=== PATIENT | male | born 1960 | race Caucasian/White ===

== ENCOUNTER 2016-08-05 13:26 | Day surgery (SDC) | payer BC ==
[2016-08-04 14:06] VITALS: BMI 35.2
[2016-08-05] MEDS ORDERED: TETRACAINE/BENZOCAINE/BUTAMBEN 20 GM SPR TP ONE (14:30)
[2016-08-05] MEDS ORDERED: PROPOFOL 20 ML ONE ×2 (14:35)
[2016-08-05 15:31] VITALS: TEMP 97.8
[2016-08-05 16:18] VITALS: BP 123/79; PULSE 72
--- NOTE | 2016-08-09 11:42 | PATH ---
Surgical Pathology Report Patient Name: FREDIS SORTO [facility]. Rec. #: [id number] /Age/Gender: 1960 (Age: 56) / M Account: [id number] Location: [facility] Taken: 08/05/2016 Received: 08/08/2016 Reported: 08/09/2016 Physicians: Nitesh Orta M.D. Specimen(s) Received BX STOMACH Clinical History GERD, history of colon polyp, family history of colon cancer Gastritis, chronic constipation, redundant colon, grade 2 hemorrhoids Final Diagnosis STOMACH, BIOPSY: GASTRIC FUNDIC MUCOSA WITH NO PATHOLOGIC CHANGES. IMMUNOSTAIN FOR H. PYLORI IS NEGATIVE. Electronically Signed Clint Vicente M.D. Gross Description Received in formalin, labeled "biopsy stomach" is a newberry, irregular portion of soft tissue measuring 0.3 cm. in greatest dimension. The specimen is submitted in toto in one cassette. 08/08/201608/08/2016
== END 2016-08-05 16:20 | disposition home or self-care (01) ==
LOC: JASU-ENDO 13:26 → JOR 13:26 → JASU-ENDO 16:20
PROVIDERS: ATTEND Internal Medicine Gastroenterology
PROC: 0DB68ZX Excision of Stomach, Via Natural or Artificial Opening Endoscopic, Diagnostic (ICD-10-PCS; 2016-08-05)
PROC: 0DJD8ZZ Inspection of Lower Intestinal Tract, Via Natural or Artificial Opening Endoscopic (ICD-10-PCS; principal; 2016-08-05 14:30)
DX: Z12.11 Encounter for screening for malignant neoplasm of colon (principal); Z86.010 Personal history of colon polyps; Z80.0 Family history of malignant neoplasm of digestive organs; K63.89 Other specified diseases of intestine; K64.8 Other hemorrhoids; R12 Heartburn; K29.70 Gastritis, unspecified, without bleeding
CPT/HCPCS: 43239; G0105; 88305-TC; 88342-TC

== ENCOUNTER 2018-12-06 15:10 | Observation (INO) | payer OTHER ==
[2018-12-06 15:15] VITALS: BMI 35.9
--- NOTE | 2018-12-06 15:16 | PDOC ---
History of Present Illness - General Chief Complaint: Chest Pain Stated Complaint: CHEST PAIN Time Seen by Provider: 12/06/18 15:12 History Source: Patient Exam Limitations: No Limitations - History of Present Illness Initial Comments: 12/06/18 15:38 58 y/o male with chest pain and left arm tingling today while gardening. No w resolved. Has been have mid sternal chest pain on/off for 1 week. Normal stress test in past. No fever or chills. Mild back pain. Denies SOB. No fall or trauma. No sweating. No traveling. Carpal tunnel surgery in October. Presenting Symptoms: Chest Pain Past History - Past Medical History Allergies/Adverse Reactions: Allergies Allergy/AdvReac Type Severity Reaction Status Date / Time clindamycin phosphate Allergy Intermediate Nausea Verified 12/06/18 15:11 [From Cleocin] Home Medications: Ambulatory Orders Amlodipine Besylate 10 mg PO DAILY 09/07/15 Escitalopram Oxalate [Lexapro -] 20 mg PO DAILY 12/06/18 Omeprazole 40 mg PO DAILY 12/06/18 Telmisartan/Hydrochlorothiazid [Telmisartan-Hctz 80-12.5 mg Tb] 1 each PO DAILY 12/06/18 Cardiac Disorders: Yes (MVP) Disorders: Yes (GERD) HTN: Yes Hypercholesterolemia: Yes (HYPERLIPIDEMIA;DISLIPIDEMIA) Psychiatric Problems: Yes (DEPRESSION) - Surgical History Orthopedic Surgery: Yes (RIGHT KNEE ARTHROSCOPY) - Suicide/Smoking/Psychosocial Hx Smoking Status: No Smoking History: Never smoked Number of Cigarettes Smoked Daily: 0 Hx Alcohol Use: Yes Drug/Substance Use Hx: Yes Substance Use Type: Alcohol Hx Substance Use Treatment: No Review of Systems - Review of Systems Able to Perform ROS?: Yes Is the patient limited Wolof proficient: No Constitutional: No: Chills, Fever Respiratory: No: Cough, Shortness of Breath Cardiac (ROS): Yes: Chest Pain ABD/GI: No: Diarrhea, Nausea, Vomiting Musculoskeletal: Yes: Back Pain Integumentary: No: Bruising Neurological: No: Headache Psychiatric: No: Anxiety All Other Systems: Reviewed and Negative *Physical Exam - Vital Signs Last Vital Signs Temp Pulse Resp BP Pulse Ox 98.5 F 71 16 127/83 97 12/06/18 15:10 12/06/18 18:00 12/06/18 18:00 12/06/18 18:00 12/06/18 18:00 - Physical Exam General Appearance: Yes: Nourished, Appropriately Dressed. No: Apparent Distress HEENT: positive: MAICOL, Normal ENT Inspection, Normal Voice, Symmetrical, Pharynx Normal Neck: positive: Trachea midline, Normal Thyroid, Supple. negative: Tender, Rigid, Carotid bruit Respiratory/Chest: positive: Lungs Clear, Normal Breath Sounds. negative: Chest Tender, Respiratory Distress Cardiovascular: positive: Regular Rhythm, Regular Rate, S1, S2. negative: Edema , JVD, Murmur Vascular Pulses: Femoral (R): 4+, Femoral (L): 4+, Carotid (R): 4+, Carotid (L) : 4+, Dorsalis-Pedis (R): 4+, Doralis-Pedis (L): 4+ Gastrointestinal/Abdominal: positive: Normal Bowel Sounds, Flat, Soft. negative : Tender, Organomegaly, Pulsatile Mass Lymphatic: negative: Adenopathy, Tenderness, Other Musculoskeletal: positive: Normal Inspection. negative: CVA Tenderness Extremity: positive: Normal Capillary Refill, Normal Inspection, Normal Range of Motion, Tender, Pelvis Stable. negative: Calf Tenderness Integumentary: positive: Normal Color, Dry, Warm Neurologic: positive: collection team lead II-XII NML intact, Fully Oriented, Alert, Normal Mood/ Affect, Normal Response, Motor Strength 5/5 Heart Score/ECG Review - History History: Moderately suspicious - Electrocardiogram EKG: Normal - Age Age: 45-65 - Risk Factors Risk Factors Heart Score: Yes Hx Hypertension, Yes Positive family hx of cardiac disease, Yes Hx Obesity Based on the list above the patient has:: >/=3 risk factors or Hx atherosclerotic disease - Troponin Troponin: </= normal limit - Score Heart Score - Total: 4 - ECG Intrepretation Rhythm: Regular Rhythm Comment:: 12/06/18 15:15 @1514 HR 91 NSR non specific T wave abnormalities 12/06/18 15:26 No change from 12/23/2008 ED Treatment Course - LABORATORY CBC & Chemistry Diagram: 12/06/18 15:20 12/06/18 15:20 - ADDITIONAL ORDERS Additional order review: Laboratory Results 12/06/18 12/06/18 15:20 15:20 Sodium 139 Potassium 4.3 Chloride 103 Carbon Dioxide 31 Anion Gap 5 L BUN 18.0 Creatinine 1.0 Est GFR (CKD-EPI)AfAm 96.40 Est GFR (CKD-EPI)NonAf 83.18 Random Glucose 96 Calcium 9.3 Total Bilirubin 0.9 AST 22 ALT 26 Alkaline Phosphatase 47 Troponin I < 0.03 Total Protein 7.3 Albumin 4.3 12/06/18 15:20 RBC 4.88 MCV 90.6 MCHC 33.4 RDW 12.7 D MPV 7.8 Neutrophils % 50.9 Lymphocytes % 35.1 Monocytes % 10.2 Eosinophils % 3.0 Basophils % 0.8 Pt with chest pain, EKG unchanged from prior, will obtain cardiac work up and call [employer]. 12/06/18 18:[address] Tejeda, will admit at [facility] and do stress test tomorrow. Pt in agreement with plan 12/06/18 18:03 CXR NAD 12/06/18 18:38 Spoke with Hospitalist will admit to observation at [facility], Abby admit ti [facility]. - RADIOLOGY Radiology Studies Ordered: Category Date Time Status CHEST X-RAY PORTABLE* [RAD] Stat Radiology 12/06/18 15:13 Taken - Medications Given in the ED: ED Medications Discontinued Medications Generic Name Dose Route Start Last Admin Trade Name Freq PRN Reason Stop Dose Admin Aspirin 324 mg 12/06/18 15:56 12/06/18 15:59 Asa - PO 12/06/18 15:57 324 mg ONCE ONE Administration *DC/Admit/Observation/Transfer Diagnosis at time of Disposition: Chest pain Qualifiers: Chest pain type: unspecified Qualified Code(s): R07.9 - Chest pain, unspecified - Discharge Dispostion Condition at time of disposition: Stable Decision to Admit order: Yes - Referrals Referrals: Brodie Cintron MD [Primary Care Provider] - - Patient Instructions - Post Discharge Activity
[2018-12-06 15:41] LABS: BASO % 0.8 % (0-2.0); HEMATOCRIT 44.2 % (35.4-49); HEMOGLOBIN 14.8 GM/dl (11.7-16.9); LYMPH % 35.1 % (8-40); MCH 30.3 pg (25.7-33.7); MCHC 33.4 g/dl (32.0-35.9); MEAN CELL VOLUME 90.6 fl (80-96); MEAN PLT VOLUME 7.8 fl (7.5-11.1); MONO % 10.2 % (3.8-10.2); NEUT % 50.9 % (42.8-82.8); PLATELET COUNT 253 K/MM3 (134-434); RBC 4.88 M/mm3 (4.00-5.60); RDW 12.7 % (11.9-15.9); WHITE BLOOD COUNT 4.9 K/mm3 (4.0-10.8)
[2018-12-06] MEDS ORDERED: ASPIRIN 81 MG CHEWABLE TABLETS PO ONE (15:56)
[2018-12-06 15:57] LABS: ALBUMIN 4.3 g/dl (3.4-5.0); BILIRUBIN,TOTAL 0.9 mg/dl (0.2-1); CALCIUM 9.3 mg/dl (8.5-10); POTASSIUM 4.3 mmol/L (3.5-5.1); TOT PROT 7.3 g/dl (6.4-8.2)
[2018-12-06] MEDS ORDERED: ASPIRIN 81 MG CHEWABLE TABLETS ONE (15:57)
--- NOTE | 2018-12-06 22:00 | HP ---
CHIEF COMPLAINT: intermittent chest pain with tingling to left side of neck and left arm PCP:Dr. Cintron Person Investigator: Dr. Walker HISTORY OF PRESENT ILLNESS: 58 year old obese male with past medical history of hypertension, dermatitis and spinal stenosis who initially presented to [facility] and reported he has been having exertional chest discomfort for the past week which was reported as intermittent episodes while he was doing gardening work. He reports today he felt a rapid heart beat and tingling in his neck and left arm that lasted about 1/2 hour. Upon evaluation in the ER he was found to have a normal troponin. EKG revealed a normal sinus rhythm, no signs of acute ischemia and nonspecific T wave changes. Cardiology was consulted and he was transferred to [facility] for further cardiac workup with nuclear stress test and echocardiogram as planned for tomorrow.He reported he had a normal stress test last year. He is currently asymptomatic of chest pain. Recent Travel:denies PAST MEDICAL HISTORY: hypertension spinal stenosis dermatitis PAST SURGICAL HISTORY: carpal tunnel surgery October 2018 Social History: Smoking:denies Alcohol:drinks 1-2 drinks/week Drugs: denies Family History: grandfather had heart issues Allergies clindamycin phosphate [From Cleocin] Allergy (Intermediate, Verified 12/06/18 15 :11) Nausea HOME MEDICATIONS: Home Medications Medication Instructions Recorded Amlodipine Besylate 10 mg PO DAILY 09/07/15 Escitalopram Oxalate [Lexapro -] 20 mg PO DAILY 12/06/18 Omeprazole 40 mg PO DAILY 12/06/18 Telmisartan/Hydrochlorothiazid 1 each PO DAILY 12/06/18 [Telmisartan-Hctz 80-12.5 mg Tb] REVIEW OF SYSTEMS CONSTITUTIONAL: Absent: fever, chills, diaphoresis, generalized weakness, malaise, loss of appetite, weight change HEENT: Absent: rhinorrhea, nasal congestion, throat pain, throat swelling, difficulty swallowing, mouth swelling, ear pain, eye pain, visual changes CARDIOVASCULAR: Absent: chest pain with radiation to neck and left arm ,syncope, palpitations, irregular heart rate, lightheadedness, peripheral edema RESPIRATORY: Absent: cough, shortness of breath, dyspnea with exertion, orthopnea, wheezing, stridor, hemoptysis GASTROINTESTINAL: Absent: abdominal pain, abdominal distension, nausea, vomiting, diarrhea, constipation, melena, hematochezia GENITOURINARY: Absent: dysuria, frequency, urgency, hesitancy, hematuria, flank pain, genital pain MUSCULOSKELETAL: Absent: myalgia, arthralgia, joint swelling, back pain, neck pain SKIN: Absent: rash, itching, pallor, facial rash HEMATOLOGIC/IMMUNOLOGIC: Absent: easy bleeding, easy bruising, lymphadenopathy, frequent infections ENDOCRINE: Absent: unexplained weight gain, unexplained weight loss, heat intolerance, cold intolerance NEUROLOGIC: Absent: headache, focal weakness or paresthesias, dizziness, unsteady gait, seizure, mental status changes, bladder or bowel incontinence PSYCHIATRIC: Absent: anxiety, depression, suicidal or homicidal ideation, hallucinations. PHYSICAL EXAMINATION Vital Signs - 24 hr 12/06/18 12/06/18 12/06/18 15:10 16:00 18:00 Temperature 98.5 F Pulse Rate 98 H Pulse Rate [ 79 71 Left Apical] Respiratory 18 18 16 Rate Blood Pressure 119/95 Blood Pressure 114/84 127/83 [Right Arm] O2 Sat by Pulse 97 99 97 Oximetry (%) 12/06/18 12/06/18 19:30 20:23 Temperature 98.4 F 98.3 F Pulse Rate 82 67 Pulse Rate [ Left Apical] Respiratory 16 20 Rate Blood Pressure 130/75 133/82 Blood Pressure [Right Arm] O2 Sat by Pulse Oximetry (%) GENERAL: awake, alert, and fully oriented no acute distress HEAD: normal EYES: pupils equal round and reactive to light EARS, NOSE, THROAT: ears normal nares patent NECK: supple LUNGS: breath sounds equal clear to auscultation bilaterally no wheezes no crackles no accessory muscle use HEART: regular rate and rhythm, normal S1 and S2 no murmurs ABDOMEN: soft, nontender, not distended, normoactive bowel sounds MUSCULOSKELETAL: normal range of motion at all joints UPPER EXTREMITIES: 2+ pulses no cyanosis LOWER EXTREMITIES: 2+ pulses, warm, well-perfused no pitting edema NEUROLOGICAL: no neuro focal deficits PSYCHIATRIC: cooperative and mood normal SKIN: warm, dry, normal turgor, facial rash-nonerythematous Laboratory Results - last 24 hr 12/06/18 12/06/18 12/06/18 15:20 15:20 15:20 WBC 4.9 RBC 4.88 Hgb 14.8 Hct 44.2 MCV 90.6 MCH 30.3 MCHC 33.4 RDW 12.7 D Plt Count 253 MPV 7.8 Absolute Neuts (auto) 2.6 Neutrophils % 50.9 Lymphocytes % 35.1 Monocytes % 10.2 Eosinophils % 3.0 Basophils % 0.8 Sodium 139 Potassium 4.3 Chloride 103 Carbon Dioxide 31 Anion Gap 5 L BUN 18.0 Creatinine 1.0 Est GFR (CKD-EPI)AfAm 96.40 Est GFR (CKD-EPI)NonAf 83.18 Random Glucose 96 Calcium 9.3 Total Bilirubin 0.9 AST 22 ALT 26 Alkaline Phosphatase 47 Troponin I < 0.03 Total Protein 7.3 Albumin 4.3 ASSESSMENT/PLAN: 58 year old obese male with past medical history of hypertension, dermatitis and spinal stenosis who initially presented to [facility] and reported he has been having exertional chest discomfort for the past week reported as intermittent and with tingling in his neck and left arm that lasted about 1/2 hour today. He is currently asymptomatic #1 Chest Pain Chest pain concerning for angina.Workup shows 2 normal troponin. EKG with no acute ST elevations and nonspecific ST changes. Cardiology was consulted- Dr. Thomas. Plan is for cardiac workup with nuclear stress test and echocardiogrm as planned for tomorrow. Check fasting lipid panel NPO after midnight Baby aspirin was added #2 Hypertension Controlled Continue with amlodipine, HCTZ/telmisartan FEN NPO after midnight DVT TEDS and SCD's Visit type - Emergency Visit Emergency Visit: Yes ED Registration Date: 12/06/18 Care time: The patient presented to the Emergency Department on the above date and was hospitalized for further evaluation of their emergent condition. - New Patient This patient is new to me today: Yes Date on this admission: 12/06/18 - Critical Care Critical Care patient: No
[2018-12-07 06:13] LABS: HEMATOCRIT 41.5 % (35.4-49); HEMOGLOBIN 14.3 GM/dL (11.7-16.9); MCH 30.6 pg (25.7-33.7); MCHC 34.3 g/dl (32.0-35.9); MEAN CELL VOLUME 89.1 fl (80-96); MEAN PLT VOLUME 7.7 fl (7.5-11.1); PLATELET COUNT 208 K/MM3 (134-434); RBC 4.66 M/mm3 (4.00-5.60); RDW 13.4 % (11.9-15.9); WHITE BLOOD COUNT 3.9 K/mm3 (4.0-10.0)
[2018-12-07 06:34] LABS: CALCIUM 7.5 mg/dL (8.5-10.1); MAGNESIUM 2.3 mg/dL (1.8-2.4); POTASSIUM 4.1 mmol/L (3.5-5.1)
--- NOTE | 2018-12-07 08:02 | PN ---
Progress Note, Physician History of Present Illness: 58 year old obese male with past medical history of hypertension, dermatitis and spinal stenosis who initially presented to [facility] and reported he has been having exertional chest discomfort for the past week which was reported as intermittent episodes while he was doing gardening work. He reports today he felt a rapid heart beat and tingling in his neck and left arm that lasted about 1/2 hour. Upon evaluation in the ER he was found to have a normal troponin. EKG revealed a normal sinus rhythm, no signs of acute ischemia and nonspecific T wave changes. Cardiology was consulted and he was transferred to [facility] for further cardiac workup with nuclear stress test and echocardiogram as planned for tomorrow.He reported he had a normal stress test last year. He is currently asymptomatic of chest pain. - Current Medication List Current Medications: Active Medications Amlodipine Besylate (Norvasc -) 10 mg PO DAILY LEONEL Aspirin (Ecotrin -) 81 mg PO DAILY LEONEL Escitalopram Oxalate (Lexapro -) 20 mg PO DAILY LEONEL Hydrochlorothiazide (Hctz -) 12.5 mg PO DAILY LEONEL Pantoprazole Sodium (Protonix -) 40 mg PO DAILY LEONEL Valsartan (Diovan -) 320 mg PO DAILY LEONEL - Objective Vital Signs: Vital Signs Temperature 98.2 F 12/07/18 01:18 Pulse Rate 58 L 12/07/18 05:00 Respiratory Rate 20 12/07/18 05:00 Blood Pressure 127/82 12/07/18 05:00 O2 Sat by Pulse Oximetry (%) 98 12/07/18 03:32 Labs: CBC, BMP 12/07/18 05:24 12/07/18 05:24
--- NOTE | 2018-12-07 08:36 | PN ---
Progress Note, Physician - Current Medication List Current Medications: Active Medications Amlodipine Besylate (Norvasc -) 10 mg PO DAILY LEONEL Aspirin (Ecotrin -) 81 mg PO DAILY LEONEL Escitalopram Oxalate (Lexapro -) 20 mg PO DAILY LEONEL Hydrochlorothiazide (Hctz -) 12.5 mg PO DAILY LEONEL Pantoprazole Sodium (Protonix -) 40 mg PO DAILY LEONEL Valsartan (Diovan -) 320 mg PO DAILY LEONEL - Objective Vital Signs: Vital Signs Temperature 98.2 F 12/07/18 01:18 Pulse Rate 58 L 12/07/18 05:00 Respiratory Rate 20 12/07/18 05:00 Blood Pressure 127/82 12/07/18 05:00 O2 Sat by Pulse Oximetry (%) 98 12/07/18 03:32 Labs: CBC, BMP 12/07/18 05:24 12/07/18 05:24
--- NOTE | 2018-12-07 08:42 | CON.CARD ---
Consult Consult Specialty:: Cardiology Referred by:: Ruibo David Reason for Consultation:: Chest pain - History of Present Illness Chief Complaint: Left arm "tingling" History of Present Illness: 58M HTN and "tachycardia" presented to [facility] with left arm "tingling" after carrying a box on his left shoulder. Was doing yardwork- felt multiple "pinches" across chest assd w/ belching- attributed to his GERD. These "pinches" lasted seconds. He denies SOB, palps, edema, PND, orthopnea. He denies exertional CP or SOB. Reports having a stress test last year that was "ok". ECG: [id number], no acute ST changes. - History Source History Provided By: Patient, Medical Record - Past Medical History Cardio/Vascular: Yes: HTN Gastrointestinal: Yes: GERD Hepatobiliary: No: Cirrhosis, Cholelithiasis, Cholecystitis, Choledocholithiasis , Hepatitis A, Hepatitis B, Hepatitis C, Other Renal/: No: Renal Failure, Renal Inusuff, BPH, Cancer, Hematuria, Hemodialysis , Neurogenic Bladder, Renal Calculi, UTI, Other Heme/Onc: No: Anemia, B12 Deficiency, Bleeding Disorder, Cancer, Current Chemotherapy, Current Radiation Therapy, Hemochromatosis, Hypercoaguable State, Myeloproliferative Synd, Sickle Cell Disease, Sickle Cell Trait, Thrombocytopenia, Other Infectious Disease: No: AIDS, C-Diff, Herpes Zoster, HIV, MRSA, STD's, Tuberculosis, VREF, Other Psych: Yes: Anxiety Musculoskeletal: No: Bursitis, Chronic low back pain, Hemiparesis, Hemiplegia, Osteoarthritis, Paraplegia, Other Rheumatology: No: Fibromyalgia, Gout, Lupus, Rheumatoid Arthritis, Sarcoidosis, Vasculitis, Other ENT: No: Allergic Rhinitis, Sinusitis, Other Endocrine: No: Tattnall's Disease, Lindsay's Disease, Diabetes Insipidus, Diabetes Mellitus, Hyperparathyroidism, Hyperthyroidism, Hypothyroidism, Osteopenia, SIADH, Other Dermatology: No: Basal Cell, Cellulitis, Eczema, Melanoma, Psoriasis, Squamous Cell, Other - Past Surgical History Additional Surgical History: B/l carpal tunnel surgeries - Alcohol/Substance Use Hx Alcohol Use: Yes - Smoking History Smoking history: Never smoked Have you smoked in the past 12 months: No Aproximately how many cigarettes per day: 0 - Social History ADL: [facility] History of Recent Travel: No Home Medications - Allergies Allergies/Adverse Reactions: Allergies Allergy/AdvReac Type Severity Reaction Status Date / Time clindamycin phosphate Allergy Intermediate Nausea Verified 12/06/18 15:11 [From Cleocin] - Home Medications Home Medications: Ambulatory Orders Amlodipine Besylate 10 mg PO DAILY 09/07/15 Escitalopram Oxalate [Lexapro -] 20 mg PO DAILY 12/06/18 Omeprazole 40 mg PO DAILY 12/06/18 Telmisartan/Hydrochlorothiazid [Telmisartan-Hctz 80-12.5 mg Tb] 1 each PO DAILY 12/06/18 Family Disease History - Family Disease History Family History: Unremarkable (No early CAD or SCD) Review of Systems Findings/Remarks: see HPI - Review of Systems Constitutional: reports: No Symptoms Eyes: reports: No Symptoms HENT: reports: No Symptoms Neck: reports: No Symptoms Cardiovascular: reports: Other (atypical CP) Respiratory: reports: No Symptoms Gastrointestinal: reports: Indigestion Genitourinary: reports: No Symptoms Breasts: reports: No Symptoms Reported Musculoskeletal: reports: No Symptoms Integumentary: reports: No Symptoms Neurological: reports: No Symptoms Endocrine: reports: No Symptoms Hematology/Lymphatic: reports: No Symptoms Psychiatric: reports: No Symptoms - Risk Factors Known Risk Factors: Yes: Age, Hypertension Vital Signs: Vital Signs Temperature 98.2 F 12/07/18 01:18 Pulse Rate 58 L 12/07/18 05:00 Respiratory Rate 20 12/07/18 05:00 Blood Pressure 127/82 12/07/18 05:00 O2 Sat by Pulse Oximetry (%) 98 12/07/18 03:32 Constitutional: Yes: No Distress, Calm Eyes: Yes: Conjunctiva Clear, EOM Intact HENT: Yes: Atraumatic, Normocephalic, Other (Rosacea on face) Neck: Yes: Supple, Trachea Midline Respiratory: Yes: CTA Bilaterally Gastrointestinal: Yes: Soft, Abdomen, Obese Cardiovascular: Yes: Regular Rate and Rhythm JVD: No Carotid Bruit: No PMI: Non-Displaced Heart Sounds: Yes: S1, S2 (RRR, No M/R/G) Edema: No - Other Data Labs, Other Data: CBC, BMP 12/07/18 05:24 12/07/18 05:24 Troponin, BNP 12/06/18 12/06/18 15:20 21:12 Troponin I < 0.03 < 0.02 Troponin, BNP 12/06/18 12/06/18 15:20 21:12 Troponin I < 0.03 < 0.02 Echo: Pending Imaging - Results Chest X-ray: Report Reviewed, Image Reviewed EKG: Image Reviewed Assessment/Plan IMP: 1. Atypical CP 2. Well controlled chronic HTN 3. Obesity 4. Anxiety 5. H/o "tachycardia"- Denies PAF REC: 1. Planned for echo and stress MPI today, with further reccs pending results 2. BP well controlled 3. ASA 81mg daily 4. Needs to begin an exercise program and alter his diet 5. Component of anxiety likely, cont home meds. Address further measures as outpatient. 6. H/o "tachycardia" - in NSR here. Telemetry.
--- NOTE | 2018-12-07 09:54 | ECHO ---
Name: FREDIS SORTO Exam:Adult Echocardiogram Study Date: 12/07/2018 07:34 AM Age: 58 yrs Reason For Study: Chest pain Height: 74 in Weight: 280 lb BSA: 2.5 m2 MMode/2D Measurements & Calculations IVSd: 1.6 cm Ao root diam: 3.1 cm LVIDd: 4.4 cm LA dimension: 4.0 cm LVIDs: 2.8 cm LVPWd: 1.1 cm EDV(Teich): 85.7 ml LVOT diam: 2.0 cm ESV(Teich): 28.9 ml Doppler Measurements & Calculations MV E max campos: 54.8 cm/sec Ao V2 max: 132.0 cm/sec MV A max campos: 66.0 cm/sec Ao max P.0 mmHg MV E/A: 0.83 MV dec time: 0.28 sec INEZ(V,D): 1.9 cm2 LV V1 max P.5 mmHg PA V2 max: 99.1 cm/sec LV V1 max: 78.6 cm/sec PA max P.9 mmHg Med Peak E' Campos: 6.9 cm/sec Med E/e': 8.0 Lat Peak E' Campos: 9.6 cm/sec Lat E/e': 5.7 Left Ventricle Left ventricular systolic function is normal. Ejection Fraction = 55-60%. The transmitral spectral Do ppler flow pattern is suggestive of impaired LV relaxation. Right Ventricle The right ventricle is grossly normal size. The right ventricular systolic function is grossly normal . Atria The left atrium is mildly dilated. Right atrium not well visualized. Mitral Valve The mitral valve is normal in structure and function. There is no mitral valve stenosis. There is tra ce to mild mitral regurgitation. Tricuspid Valve The tricuspid valve is normal in structure and function. There is mild tricuspid regurgitation. Aortic Valve There is mild aortic sclerosis.;. No hemodynamically significant valvular aortic stenosis. No aortic regurgitation is present. Pulmonic Valve The pulmonic valve is not well seen, but is grossly normal. There is no pulmonic valvular stenosis. T race to mild pulmonic valvular regurgitation. Great Vessels The aortic root is normal size. Borderline dilated ascending aorta. The ascending aorta measures 3.7- 3.8cm. Pericardium/Pleura There is no pericardial effusion. Interpretation Summary Left ventricular systolic function is normal. Ejection Fraction = 55-60%. The transmitral spectral Doppler flow pattern is suggestive of impaired LV relaxation. The left atrium is mildly dilated. There is trace to mild mitral regurgitation. There is mild tricuspid regurgitation. There is mild aortic sclerosis.; Borderline dilated ascending aorta. There is no pericardial effusion. MD Engel *Ileana 12/07/2018 09:52 AM
[2018-12-07] MEDS ORDERED: amLODIPine BESYLATE 10 MG TABLET (FP) PO SCH (10:00)
[2018-12-07] MEDS ORDERED: PANTOPRAZOLE 40 MG TABLET (FP) PO SCH (10:00)
[2018-12-07] MEDS ORDERED: VALSARTAN 160 MG TABLET (UD) PO SCH (10:00)
[2018-12-07] MEDS ORDERED: PATIENT'S OWN MEDICATION (NON-FORMULARY) (Telmisartan/Hydrochlorothiazid [Telmisartan-Hctz PO SCH (10:00)
[2018-12-07] MEDS ORDERED: HYDROCHLOROTHIAZIDE 12.5 MG CAPSULE (FP) PO SCH (10:00)
[2018-12-07] MEDS ORDERED: ESCITALOPRAM OXALATE 20 MG TABLET (FP) PO SCH (10:00)
[2018-12-07] MEDS ORDERED: ASPIRIN COATED 81 MG TABLET.EC PO SCH (10:00)
--- NOTE | 2018-12-07 11:17 | EKG ---
Test Reason : Blood Pressure : / mmHG Vent. Rate : 091 BPM Atrial Rate : 091 BPM P-R Int : 192 ms QRS Dur : 084 ms QT Int : 336 ms P-R-T Axes : 059 011 065 degrees QTc Int : 413 ms NORMAL SINUS RHYTHM NONSPECIFIC T WAVE ABNORMALITY ABNORMAL ECG WHEN COMPARED WITH ECG OF 24-DEC-2008 11:16, VENT. RATE HAS INCREASED BY 33 BPM Confirmed by MIRA WINSTON MD ([id number]) on 12/07/2018 11:16:49 AM Referred By: SIRIA JOHNSON Confirmed By:MIRA WINSTON MD
[2018-12-07 14:28] VITALS: BP 129/88; PULSE 64
--- NOTE | 2018-12-07 14:50 | DS ---
Physical Examination Vital Signs: Vital Signs Temperature 98.2 F 12/07/18 01:18 Pulse Rate 64 12/07/18 14:27 Respiratory Rate 20 12/07/18 14:27 Blood Pressure 129/88 12/07/18 14:27 O2 Sat by Pulse Oximetry (%) 98 12/07/18 03:32 Constitutional: Yes: Well Nourished, No Distress, Calm Eyes: Yes: Conjunctiva Clear, EOM Intact HENT: Yes: WNL, Atraumatic, Normocephalic Neck: Yes: WNL, Supple, Trachea Midline Cardiovascular: Yes: WNL, Regular Rate and Rhythm Respiratory: Yes: WNL, Regular, CTA Bilaterally Gastrointestinal: Yes: WNL, Normal Bowel Sounds, Soft ...Rectal Exam: Yes: Deferred Renal/: Yes: WNL Musculoskeletal: Yes: WNL Extremities: Yes: WNL Edema: No Peripheral Pulses WNL: Yes Integumentary: Yes: WNL Neurological: Yes: WNL, Alert, Oriented ...Motor Strength: WNL Psychiatric: Yes: WNL, Alert, Oriented Labs: CBC, BMP 12/07/18 05:24 12/07/18 05:24 Discharge Summary Reason For Visit: CHEST PAIN Current Active Problems Chest pain (Acute) Hospital Course: 58M HTN and "tachycardia" presented to [place] [facility] with left arm "tingling" after carrying a box on his left shoulder. Was doing yardwork- felt multiple "pinches" across chest assd w/ belching- attributed to his GERD. These "pinches" lasted seconds. Nuclear stress normal can be discharge home and follow with PMD Condition: Improved - Instructions Disposition: HOME - Home Medications Comprehensive Discharge Medication List: Ambulatory Orders Amlodipine Besylate 10 mg PO DAILY 09/07/15 Escitalopram Oxalate [Lexapro -] 20 mg PO DAILY 12/06/18 Omeprazole 40 mg PO DAILY 12/06/18 Telmisartan/Hydrochlorothiazid [Telmisartan-Hctz 80-12.5 mg Tb] 1 each PO DAILY 12/06/18 Aspirin Coated [Ecotrin -] 81 mg PO DAILY tablet.ec 12/07/18 Valsartan [Diovan] 320 mg PO DAILY tablet 12/07/18 This patient is new to me today: Yes Date on this admission: 12/07/18 Emergency Visit: Yes ED Registration Date: 12/06/18 Care time: The patient presented to the Emergency Department on the above date and was hospitalized for further evaluation of their emergent condition. Critical Care patient: No - Discharge Referral Referred to [facility] No
[2018-12-07 15:01] VITALS: TEMP 98.5
== END 2018-12-07 16:50 | disposition home or self-care (01) ==
LOC: FER 15:10 → J4W 18:42 → UNDOADMIN 20:23 → J4W 20:23 → UNDODISIN 12-07 15:17
PROVIDERS: ADMIT Internal Medicine; ATTEND Internal Medicine
DX: R07.9 Chest pain, unspecified (principal); I10 Essential (primary) hypertension; I34.1 Nonrheumatic mitral (valve) prolapse; K21.9 Gastro-esophageal reflux disease without esophagitis; E78.5 Hyperlipidemia, unspecified; L30.9 Dermatitis, unspecified; M48.00 Spinal stenosis, site unspecified; E66.9 Obesity, unspecified; Z68.35 Body mass index [BMI] 35.0-35.9, adult; F32.9 Major depressive disorder, single episode, unspecified; F41.9 Anxiety disorder, unspecified; Z88.1 Allergy status to other antibiotic agents
CPT/HCPCS: 36415; 71045-TC-FY; 78452-TC; 80048; 80053; 80061; 83721; 83735; 84484; 85025; 85027; 93005; 93017; 93306-TC; 99285-25; A9502; G0378